=== PATIENT | female | born 1955 | race Caucasian/White ===

== ENCOUNTER 2016-08-18 12:42 | Emergency (ER) | payer BC ==
[~2016-08-18 12:42] MED LIST: ALLERGY INJECTIONS SC; ALTA5 PO; ALTACE PO; ALTACE10 MG PO; ASA5GR PO; ASAB PO; B12250T PO; BRILINTA90 MG PO; CIP5 PO; CRESTOR20 MG PO; DURA12 TOP; EFFIENT10 PO; EYE DROP OP; HUMAPUMP SC; IMDUR30 PO; JANTOVEN1 MG PO; JANTOVEN10 MG PO; JANTOVEN4 MG PO; JANTOVEN5 MG PO; JANTOVEN6 MG PO; JANTOVEN7.5 MG PO; K-TABS10 MEQ PO; KAPIDEX60 MG PO; KDUR10 PO; KLOR-CON 1010 MEQ PO; KLOR-CON M1010 MEQ PO; L40 PO; LEVEMFLXPN SC; LEVEMIR INSULIN; LEVEMIR SC; LIPITOR80 MG PO; LIQUITEARS OPH; LOP25 PO; LORCET PO; LORTAB 5 PO; LORTAB10 PO; NEUR100 PO; NITROQUICK0.4 MG SL; NITROSTAT0.4 MG; NITROSTAT0.4 MG SL; NORCO1 TAB PO; NOVLOGPUMP; NOVLOGPUMP SC; NOVOLOG PUMP; NOVOPEN SC; P20 PO; PEP20 PO; PERCOCET1 TA4 PO; PERCOCET1 TA5 PO; POTASSIUM RX PO; PRILOSEC40 MG PO; RANITIDINE300 MG PO; RECLAST IV; REFRESH OPH SO0.3 ML OPH; RESTASIS OPH; ROXICODONE15 MG PO; SUCR PO; ULTRAM50 PO; VALIUM10 MG PO; VITAMIN D1000 UNI1 PO; X5 PO; XANAX PO; ZANTAC300 MG PO; ZOLOFT25 MG PO
[2016-08-18 13:22] LABS: BASOPHILS 0.5 %; BASOPHILS ABSOLUTE 0.03 10/3/uL (0.0-0.16); EOSINOPHILS 2.4 %; EOSINOPHILS ABSOLUTE 0.14 10/3/uL (0.0-0.53); HEMATOCRIT 31.8 % (36.0-48.0); IMMATURE GRANULOCYTES 0.2 %; IMMATURE GRANULOCYTES ABSOLUTE 0.01 10/3/uL (0.0-0.11); LYMPHOCYTES 33.3 %; LYMPHOCYTES ABSOLUTE 1.94 10/3/uL (0.67-4.30); MEAN CORPUSCULAR HEMOGLOB 28.1 pg (26.0-34.0); MEAN CORPUSCULAR VOLUME 89.3 fL (80-100); MEAN PLATELET VOLUME 10.2 fL (9.2-13.0); MONOCYTES 6.7 %; MONOCYTES ABSOLUTE 0.39 10/3/uL (0.21-1.20); NEUTROPHILS 56.9 %; NEUTROPHILS ABSOLUTE 3.32 10/3/uL (2.02-8.40); PLATELET COUNT 242 10/3/uL (150-400); RBC DISTRIBUTION WIDTH 15.4 % (12.0-16.0); RED CELL COUNT 3.56 10/6/uL (4.0-5.6); WHITE BLOOD CELLS 5.8 10/3/uL (4.5-10.5)
[2016-08-18 13:23] LABS: MANUAL DIFF NO %; MEAN CORPUS HGB CONC 31.4 g/dL (32.0-36.0)
[2016-08-18 13:28] LABS: INTERNATIONAL NORMAL RATI 1.4 UNITS (-); PARTIAL THROMBO TIME 28.1 SEC (22.5-37.2)
[2016-08-18 13:29] LABS: PROTIME (NOT ORD) 16.8 SEC (12.0-14.5)
[2016-08-18 13:41] LABS: BUN (BLOOD UREA NITROGEN) 21 MG/DL (6-23); CALCIUM, SERUM 8.7 MG/DL (8.5-10.4); CHLORIDE, SERUM 106 MMOL/L (96-112); CO2 (CARBON DIOXIDE) 30 MMOL/L (24-34); GFR AFRICAN AMERICAN 62 ML/MIN (>=60); GFR NON AFRICAN AMERICAN 54 ML/MIN (>=60); POTASSIUM, SERUM 3.7 MMOL/L (3.5-5.3); SODIUM, SERUM 142 MMOL/L (135-148)
[2016-08-18 13:45] LABS: CHEST PAIN PROFILE TAT 0 Hrs 29 Mins; GLUCOSE, SERUM 169 MG/DL (60-99); TROPONIN I 0.33 NG/ML (<0.05)
== END 2016-08-18 17:30 | disposition home or self-care (01) ==
LOC: ER 12:42
PROVIDERS: Emergency Medicine
DX: I50.9 Heart failure, unspecified (principal); R79.89 Other specified abnormal findings of blood chemistry; I73.9 Peripheral vascular disease, unspecified; I25.2 Old myocardial infarction; E10.9 Type 1 diabetes mellitus without complications; Z95.1 Presence of aortocoronary bypass graft; F17.200 Nicotine dependence, unspecified, uncomplicated; Z88.2 Allergy status to sulfonamides; Z88.8 Allergy status to other drugs, medicaments and biological substances; Z79.4 Long term (current) use of insulin; Z79.01 Long term (current) use of anticoagulants; Z79.82 Long term (current) use of aspirin; Z79.899 Other long term (current) drug therapy
CPT/HCPCS: 71020; 80048; 83735; 83880; 84484; 85025; 85610; 85730; 93005; 96374; 99285

== ENCOUNTER 2016-09-22 19:17 | Inpatient (IN) | payer BC ==
--- NOTE | ~2016-09-22 | CN ---
Consultation Report [facility] [address] [place]. [address] NAME: GEORGE DU : 53 STATUS : ADM IN PAT#: [id number] AGE: 61 ADM/REG DATE : 09/22/16 MR#: [id number] REPORT SERV DATE: 09/26/16 DICTATED BY: MESFIN FERNANDES DATE: 09/26/16 REPORT STATUS : Draft TRANSCRIBED BY: MODL DATE: 09/26/16 ELECTROPHYSIOLOGY CONSULTATION DATE OF CONSULTATION: 09/26/2016 REASON FOR CONSULTATION: Sinus bradycardia and ischemic cardiomyopathy. HISTORY OF PRESENT ILLNESS: Ms. Du is a pleasant 61-year-old woman with longstanding history of coronary disease, status post a CAB in 1995, PCI procedures since that time. She presented with complaints of some congestion and atypical chest discomfort. In this setting, she had an echocardiogram that revealed LV systolic dysfunction with ejection fraction of 30%. She also has underlying sinus bradycardia and has a tachy-nickolas syndrome with atrial fibrillation and a recent cardioversion. She is not taking any rate-slowing agents. HOME MEDICATIONS: Include Lasix, hydrocodone, midodrine for orthostatic hypotension, potassium, Crestor, Brilinta, and Jantoven. PAST MEDICAL HISTORY: Notable for: 1. CAB in 1995 with recurrent cardiac catheterizations and PCI procedures and stents, this patient on Brilinta and Coumadin. 2. Atrial fibrillation. 3. Sinus bradycardia. 4. Orthostatic hypotension. 5. Stage II renal insufficiency. FAMILY HISTORY: Noncontributory. Negative for premature coronary artery disease or sudden cardiac . SOCIAL HISTORY: Negative tobacco or alcohol. REVIEW OF SYSTEMS: As noted above. All other systems reviewed and negative. PHYSICAL EXAMINATION: VITAL SIGNS: Blood pressure of 130/60, pulse of 42, respirations 16. GENERAL: Well developed, well nourished. HEENT: No icterus. Good dentition. NECK: Supple. No masses or thyromegaly. LUNGS: Breathing comfortably. No rales or wheezes. COR: Normal S1 and S2. No S3 or S4. No murmurs, clicks, rubs. No JVD. ABD: Soft, nondistended, nontender. No hepatosplenomegaly. EXT: No clubbing, cyanosis, or edema. Peripheral pulses 2+/= bilaterally. SKIN: Warm and dry. No visible lesions. Consultation Report [facility] [address] [place]. [address] NAME: GEORGE DU : 53 STATUS : ADM IN PAT#: [id number] AGE: 61 ADM/REG DATE : 09/22/16 MR#: [id number] REPORT SERV DATE: 09/26/16 DICTATED BY: MESFIN FERNANDES DATE: 09/26/16 REPORT STATUS : Draft TRANSCRIBED BY: MODL DATE: 09/26/16 MS: Chest wall without deformity. No obvious clavicular fractures. NEURO/PSYCH: Oriented x3. No anxiety or depression. DATA: EKG on admission showed sinus bradycardia, heart rate of 55 beats per minute, normal FL interval, normal QRS and QT intervals. No evidence for infarction or T-wave inversions. Cannot exclude lateral ischemia. LABORATORY VALUES: Unremarkable. Troponin negative. Electrolytes within normal limits. White count within normal limits. INR of 1.6. IMPRESSION: The patient with sinus bradycardia as well as a cardiomyopathy, presumably ischemic. The patient has a longstanding history of coronary artery disease. Her ejection fraction is now 30%. She is unable to take beta-blockers due to her underlying sinus bradycardia. She has otherwise been started on Aldactone due to renal insufficiency, has trouble taking DEMOND inhibitors as well. Because of all these issues including the cardiomyopathy and the sinus bradycardia, I have recommended a dual-chamber permanent pacemaker. At this point in time, I do not see indications for a SHEEP HERDER device as the patient does not appear to require ventricular pacing nor does she have an underlying prolonged QRS duration. I have described the procedure of dual-chamber pacemaker implantation. I noted the inherent risks which include, but are not exclusive to bleeding, infection, pneumothorax, cardiac perforation, and risk of . She claims to understand these issues, and she is willing to proceed. DADA/SYLVIA Mefsin Fernandes M.D. / [id number] CC: Genesis Scott Frances
--- NOTE | ~2016-09-22 | CN ---
Consultation Report [facility] [address] [place]. [address] NAME: GEORGE DU : 53 STATUS : ADM IN PAT#: [id number] AGE: 61 ADM/REG DATE : 09/22/16 MR#: [id number] REPORT SERV DATE: 09/22/16 DICTATED BY: SERGE LOMELI DATE: 09/22/16 REPORT STATUS : Draft TRANSCRIBED BY: MODKey DATE: 09/22/16 CARDIOLOGY CONSULTATION DATE OF CONSULTATION: 09/22/2016 REFERRING PHYSICIAN: [facility]. CHIEF COMPLAINT: Shortness of breath, chest pain. REASON FOR CONSULTATION: Shortness of breath, chest pain. SOURCE: Patient chart. HISTORY OF PRESENT ILLNESS: Ms. Du is a very pleasant 61-year-old, white woman with multiple medical problems including coronary artery disease and atrial flutter as well as orthostatic hypotension. She was in her usual state of health until four days ago when she began to have a cold and sinus congestion. She had a cough, sneezing, and coryza. She then started feeling shortness of breath. This continued to get worse. Her chest hurt today and radiate into the left arm. It lasted about 20 minute. She became hot and sweaty at that time. She took nitroglycerin and got better. Her left leg has been swelling. She has been feeling bloated. Her weight has increased. She feels full all the time. She did have diarrhea about five days ago, but that has gotten better. She has had some dizziness. Her blood pressure has remained low. She has not had any bleeding. REVIEW OF SYSTEMS: All other systems are negative. ALLERGIES: INCLUDED PLAVIX, SULFA, METHADONE, ROSIGLITAZONE, PREGABALIN. MEDICATIONS: At home included alprazolam, artificial tears, furosemide, gabapentin, hydrocodone, insulin, midodrine, nitroglycerin, omeprazole, potassium, ranitidine, rosuvastatin, ticagrelor, and warfarin. CARDIAC RISK FACTORS: 10/20. PAST MEDICAL HISTORY: Remarkable for coronary artery disease, status post coronary bypass grafting and multiple percutaneous interventions, most recently, the in June. She also has peripheral artery disease, which is extensive, status post surgery and percutaneous interventions. She has atrial fibrillation, status post recent ALONSO cardioversion. She has had renal artery disease, carotid artery disease, chronic kidney disease. Recently she has been having problems with orthostatic hypotension, has been placed on ProAmatine. SOCIAL HISTORY: Continues to smoke. Does not consume alcohol or illegal drugs. Consultation Report [place] [id number] [facility] [place]. [address] NAME: GEORGE DU : 53 STATUS : ADM IN PAT#: [id number] AGE: 61 ADM/REG DATE : 09/22/16 MR#: [id number] REPORT SERV DATE: 09/22/16 DICTATED BY: SERGE LOMELI DATE: 09/22/16 REPORT STATUS : Draft TRANSCRIBED BY: SYLVIA DATE: 09/22/16 FAMILY HISTORY: Significant for coronary artery disease. PHYSICAL EXAMINATION: GENERAL: She is an acutely and chronically ill-appearing elderly white woman, in no acute distress. VITAL SIGNS: Blood pressure is 114/53, pulse 71, temperature 98.2, her weight in June, which was 88.2 kilos, height is 5 feet 5 inches. The weight is not been done this admission. HEENT: Sclerae anicteric. Lips without cyanosis. Carotids 2+ and symmetrical. Bilateral bruits. No JVD. No thyromegaly. LUNGS: Diminished breath sounds and rales at both bases. No use of accessory muscles. HEART: Regular rate and rhythm. 2/6 systolic murmur. No heaves or thrills. ABDOMEN: Obese. Positive bowel sounds. Soft, nontender. EXTREMITIES: Pulses 1+ and symmetrical. No cyanosis or clubbing. 1+ edema. BACK: No CVA tenderness. MUSCULOSKELETAL: Good tone. NEURO: Alert and oriented x3. DATA: The EKG AF from [facility], normal sinus rhythm, anterior myocardial infarction of undetermined age. Inferolateral ST-T wave changes, actually less prominent than August. LABORATORY EXAMINATION: Includes white count 7.5, hemoglobin 10.0, hematocrit 32.6, platelets 281,000. MCV is 81. INR 1.3. PTT of 22.6. Sodium 138, potassium 3.8, chloride 100, CO2 of 29, glucose 297, BUN 16, creatinine 1.3. BNP level is 9312. Troponin of 0.11. AST 19, ALT 17, alkaline phosphatase 91, total bilirubin 0.6. IMPRESSION: 1. Congestive heart failure, acute on chronic, combined systolic and diastolic dysfunction. 2. Last left ventricular ejection fraction of 55% by echocardiogram earlier this year. 3. Coronary artery disease, status post coronary bypass grafting and multiple percutaneous interventions. 4. Brief chest pain today of unclear significance. 5. Severe peripheral artery disease, status post surgery and percutaneous intervention. 6. Anticoagulated with subtherapeutic INR. 7. Paroxysmal atrial fibrillation, status post ALONSO cardioversion. 8. 5/5 cardiac risk factors. 9. Chronic kidney disease, stage III. 10.Orthostatic hypotension, on ProAmatine. 11.Sleep apnea, on CPAP. 12.Anemia with borderline microcytosis. RECOMMENDATIONS: 1. Complete database. See orders. 2. Diuresis with IV Lasix. Consultation Report [address] [address] NAME: GEORGE DU : 53 STATUS : ADM IN [facility]#: [id number] AGE: 61 ADM/REG DATE : 09/22/16 MR#: [id number] REPORT SERV DATE: 09/22/16 DICTATED BY: SERGE LOMELI. DATE: 09/22/16 REPORT STATUS : Draft TRANSCRIBED BY: MODL DATE: 09/22/16 3. Continue ProAmatine. 4. Not on DEMOND inhibitors due to chronic kidney disease and low blood pressure. 5. Not on beta-blockers due to low blood pressure. 6. Continue Jantoven and Brilinta. 7. Consult Hospital Service. LUIS MANUEL/TOBYL Serge Lomeli M.D. / [id number] CC: Genesis Rodríguez
--- NOTE | ~2016-09-22 | HP ---
History And Physical [place] [id number] [place]. [address] NAME: GEORGE RAMOS : 53 STATUS : ADM IN PAT#: [id number] AGE: 61 ADM/REG DATE : 09/22/16 MR#: [id number] REPORT SERV DATE: 09/23/16 DICTATED BY: FELIPE BAIRD DATE: 09/22/16 REPORT STATUS : Draft TRANSCRIBED BY: MODKey DATE: 09/22/16 DATE OF ADMISSION: 09/22/2016 CONSULTATION/HISTORY AND PHYSICAL. CHIEF COMPLAINT: Episode of chest pain today. HISTORY OF PRESENT ILLNESS: This is a pleasant 61-year-old white female, with a multiple medical problems, who was admitted by Cardiology Dr. Eugenio Lopez today as a transfer from [facility]. Hospitalist Service has been asked to consult for medical management of her diabetes, and the patient reports that this past week Sunday through Sunday she had episodes of diarrhea and decreased p.o. intake. This seemed to resolve on Sunday but then she began to have cold symptoms, sinus congestion, and then she reports episodes of chest pain that radiated down her left arm today. She also states that for the past two to three months she has had worsening fatigue, worsening dyspnea with exertion to the point where she feels like ambulating in her home from chair and to the hallway and so forth she feels like she will pass out. The patient is an insulin-dependent diabetic and has been on an insulin pump of Humalog for sometime although she has some difficulty in explaining her usage when asked. She did have a hemoglobin A1c checked here during hospitalization in June of 2016, and that was 8.0, however. PAST MEDICAL HISTORY: Includes diabetes type 2 as stated, gastroparesis with coronary artery disease, hypertension, hyperlipidemia, paroxysmal atrial fib. She has neuropathy as well. ALLERGIES: TO BRILINTA, SULFA, PLAVIX, LYRICA. SOCIAL HISTORY: Tobacco one and half packs per day but she says she has not smoked in the past month. Alcohol, she denies. SURGICAL HISTORY: Coronary artery bypass grafting, cardiac cath with stents drug eluting, cholecystectomy, tonsillectomy, cataract surgery, and sinus surgery. FAMILY HISTORY: Significant for coronary artery disease in multiple family members including mother and brothers and sisters. She also states that two brothers have lung cancer and one brother with type 2 diabetes. REVIEW OF SYSTEMS: A 10-point review of systems is negative, except for pertinents mentioned in the above HPI. PHYSICAL EXAMINATION: VITAL SIGNS: Temperature is 97.8, pulse rate of 65. She is 95% on 1-2 L nasal cannula. Blood pressure 146/74, respiratory rate 16. GENERAL: She is alert oriented x3. Moves all extremities x4. No focal deficits. She is generally cooperative and awake for this exam. NECK: No appreciable lymphadenopathy is noted. Mild JVD. LUNGS: Clear to auscultation bilaterally. Normal respiratory effort. History And Physical [address] [place]. [address] NAME: GEORGE RAMOS : 53 STATUS : ADM IN [facility]#: [id number] AGE: 61 ADM/REG DATE : 09/22/16 MR#: [id number] REPORT SERV DATE: 09/23/16 DICTATED BY: FELIPE BAIRD DATE: 09/22/16 REPORT STATUS : Draft TRANSCRIBED BY: SYLVIA DATE: 09/22/16 CARDIOVASCULAR: She is currently sinus rhythm at 66 heart rate. No murmurs, rubs, gallops heard. ABDOMEN: Soft, nontender, somewhat hyperactive bowel sounds. Lower extremity edema +1 bilaterally. HEENT: PERRLA is noted. Sclerae are clear. SKIN: Otherwise, skin is warm and dry. LAB WORK: Lab work has a white blood cell 7.5, hemoglobin 10.0, hematocrit 32.6, platelet count 281. Sodium 138, potassium 3.8, BUN of 16, creatinine 1.38, glucose 297, INR 1.4, and a BNP of 9312. ASSESSMENT: 1. Insulin-dependent diabetes type 2 with hemoglobin A1c in June of 2016 of 8.0 with neuropathy. 2. Chronic kidney disease, stage III. 3. Chest pain. 4. Acute on chronic congestive heart failure, systolic and diastolic. 5. Paroxysmal atrial fibrillation, but now in sinus rhythm, on chronic Coumadin therapy. Most recent INR is 1.4. 6. Obstructive sleep apnea. CPAP use nightly, tobacco use. 7. History of peripheral arterial disease. 8. Dyspnea with exertion. 9. Anxiety. PLAN: We will utilize Levemir and a sliding scale at this time and stop her Humalog pump as she is unable to properly explain her usage, and she does not have extra insulin at this time. We will have the community health educator see the patient while she is here, and we will obtain a hemoglobin A1c as the last one was done in June. Her troponins will be trended per Cardiology. She will be diuresed with IV Lasix. Her lab work will be followed closely. Orthostatics will be checked, and I will add a TSH to her regimen for completeness sake. I appreciate the opportunity to consult on this patient. We will follow along with you. CSC/MODL Felipe Baird NP / [id number] CC: Genesis Rodríguez
--- NOTE | ~2016-09-22 | DS ---
Discharge Summary [facility] [address] [place]. [address] NAME: GEORGE RAMOS : 53 STATUS : DIS IN PAT#: [id number] AGE: 61 ADM/REG DATE : 09/22/16 MR#: [id number] REPORT SERV DATE: 10/17/16 DICTATED BY: DANTE RANDALL DATE: 10/16/16 REPORT STATUS : Draft TRANSCRIBED BY: MODL DATE: 10/16/16 ADMISSION DATE: 09/22/2016 DISCHARGE DATE: 09/29/2016 DISCHARGE DIAGNOSES: 1. Acute on chronic ischemic cardiomyopathy, both systolic and diastolic, status post dual- chamber ICD implantation. 2. Paroxysmal atrial fibrillation, on Coumadin. 3. Chronic kidney disease, stage III. 4. Uncontrolled diabetes, type 2. 5. Peripheral artery disease. 6. Obstructive sleep apnea. CONSULTANTS: Cardiology. PROCEDURES: Dual-chamber ICD implantation on 09/26/[address] Hampton. HOSPITAL COURSE: This is a 61-year-old lady who was admitted to the hospital with recurrent chest pains. For details, please refer to H and P by Felipe Sweeney dictated on 09/23/2016. In summary, the patient was admitted and was diagnosed with acute on chronic combined systolic and diastolic dysfunction. The patient was treated appropriately with IV diuretics. The patient was then evaluated for biventricular ICD implantation which was put in 09/26/2016. By the time I assumed care of this patient. The patient was status post ICD implantation and was recovering. After a few days of close monitoring, the patient was discharged home in stable condition to be followed closely as an outpatient. Her presenting symptom of acute on chronic systolic and diastolic congestive heart failure was better controlled by the time of discharge. DISPOSITION: Home. DISCHARGE MEDICATIONS: Discharge medication reconciliation was done by Cardiology, please review the discharge MAR. FOLLOWUP: 1. Please follow up with Cardiology in the next one to two weeks. 2. Please follow up with PCP in the next one to two weeks. A total of 35 minutes spent in coordinating this patient's discharge. Please note that the Hospitalist Service actually saw the patient as a oracle hyperion consultant and Cardiology has actually been the primary team for this patient. DEYSI/SYLVIA Dante Randall MD Discharge Summary [address] [place] [address] NAME: GEORGE RAMOS : 53 STATUS : DIS IN PAT#: [id number] AGE: 61 ADM/REG DATE : 09/22/16 MR#: [id number] REPORT SERV DATE: 10/17/16 DICTATED BY: DANTE RANDALL DATE: 10/16/16 REPORT STATUS : Draft TRANSCRIBED BY: SYLVIA DATE: 10/16/16 / [id number] CC: Genesis Scott
[2016-09-22] MEDS ORDERED: PROAM25 PO (19:54)
[2016-09-22 22:55] LABS: INTERNATIONAL NORMAL RATI 1.4 UNITS (-); PROTIME (NOT ORD) 16.9 SEC (12.0-14.5)
[2016-09-23 00:22] LABS: BASOPHILS 0.3 %; BASOPHILS ABSOLUTE 0.02 10/3/uL (0.0-0.16); EOSINOPHILS 0.1 %; EOSINOPHILS ABSOLUTE 0.01 10/3/uL (0.0-0.53); HEMATOCRIT 31.3 % (36.0-48.0); HEMOGLOBIN 9.7 g/dL (12.0-16.0); IMMATURE GRANULOCYTES 0.1 %; IMMATURE GRANULOCYTES ABSOLUTE 0.01 10/3/uL (0.0-0.11); LYMPHOCYTES 23.3 %; LYMPHOCYTES ABSOLUTE 1.59 10/3/uL (0.67-4.30); MEAN PLATELET VOLUME 10.3 fL (9.2-13.0); MONOCYTES 6.8 %; MONOCYTES ABSOLUTE 0.46 10/3/uL (0.21-1.20); NEUTROPHILS 69.4 %; NEUTROPHILS ABSOLUTE 4.72 10/3/uL (2.02-8.40); PLATELET COUNT 242 10/3/uL (150-400); WHITE BLOOD CELLS 6.8 10/3/uL (4.5-10.5)
[2016-09-23 00:24] LABS: MANUAL DIFF NO %; MEAN CORPUSCULAR HEMOGLOB 24.9 pg (26.0-34.0); MEAN CORPUSCULAR VOLUME 80.3 fL (80-100)
[2016-09-23 00:31] LABS: PARTIAL THROMBO TIME 28.8 SEC (22.5-37.2)
[2016-09-23 00:33] LABS: D-DIMER QUANTITATIVE 1.33 ug/mLFEU (< 0.50)
[2016-09-23 01:07] LABS: A/G RATIO 0.9 (0.7-1.9); ALBUMIN 3.4 G/DL (3.5-5.0); ALKALINE PHOSPHATASE 87 U/L (45-117); BUN (BLOOD UREA NITROGEN) 18 MG/DL (6-23); CALCIUM, SERUM 8.8 MG/DL (8.5-10.4); CHLORIDE, SERUM 100 MMOL/L (96-112); CO2 (CARBON DIOXIDE) 30 MMOL/L (24-34); CREATININE 1.01 MG/DL (0.55-1.02); GFR AFRICAN AMERICAN 69 ML/MIN (>=60); GFR NON AFRICAN AMERICAN 60 ML/MIN (>=60); GLOBULIN 3.7 G/DL (2.5-4.1); POTASSIUM, SERUM 3.5 MMOL/L (3.5-5.3); SGOT(AST) 14 U/L (5-40); SGPT(ALT) 14 U/L (5-65); SODIUM, SERUM 140 MMOL/L (135-148); TOTAL BILIRUBIN 0.8 MG/DL (0-1.2); TOTAL PROTEIN 7.1 G/DL (6.0-8.5); ULTRASENSITIVE TSH 0.668 MCIU/ML (0.358-3.740)
[2016-09-23 01:08] LABS: CK-MB 2.2 NG/ML; CPK 83 U/L (0-200); GLUCOSE, SERUM 225 MG/DL (60-99)
[2016-09-23 02:15] LABS: BASOPHILS 0.3 %; BASOPHILS ABSOLUTE 0.02 10/3/uL (0.0-0.16); EOSINOPHILS 0.2 %; EOSINOPHILS ABSOLUTE 0.01 10/3/uL (0.0-0.53); HEMATOCRIT 29.4 % (36.0-48.0); HEMOGLOBIN 9.3 g/dL (12.0-16.0); IMMATURE GRANULOCYTES 0.2 %; IMMATURE GRANULOCYTES ABSOLUTE 0.01 10/3/uL (0.0-0.11); LYMPHOCYTES 23.6 %; MEAN CORPUS HGB CONC 31.6 g/dL (32.0-36.0); MEAN CORPUSCULAR HEMOGLOB 25.4 pg (26.0-34.0); MEAN CORPUSCULAR VOLUME 80.3 fL (80-100); MEAN PLATELET VOLUME 9.9 fL (9.2-13.0); MONOCYTES 6.7 %; NEUTROPHILS ABSOLUTE 4.09 10/3/uL (2.02-8.40); PLATELET COUNT 226 10/3/uL (150-400); RED CELL COUNT 3.66 10/6/uL (4.0-5.6); WHITE BLOOD CELLS 5.9 10/3/uL (4.5-10.5)
[2016-09-23 02:16] LABS: MANUAL DIFF NO %
[2016-09-23 02:22] LABS: INTERNATIONAL NORMAL RATI 1.5 UNITS (-); PROTIME (NOT ORD) 17.6 SEC (12.0-14.5)
[2016-09-23 02:40] LABS: BUN (BLOOD UREA NITROGEN) 17 MG/DL (6-23); CALCIUM, SERUM 8.6 MG/DL (8.5-10.4); CHLORIDE, SERUM 102 MMOL/L (96-112); CO2 (CARBON DIOXIDE) 31 MMOL/L (24-34); CPK 71 U/L (0-200); GFR AFRICAN AMERICAN 79 ML/MIN (>=60); GFR NON AFRICAN AMERICAN 69 ML/MIN (>=60); GLUCOSE, SERUM 266 MG/DL (60-99); POTASSIUM, SERUM 3.6 MMOL/L (3.5-5.3); SODIUM, SERUM 142 MMOL/L (135-148)
[2016-09-23 02:42] LABS: CK-MB 2.6 NG/ML
[2016-09-23 12:13] LABS: CK-MB 2.4 NG/ML; CPK 93 U/L (0-200)
[2016-09-23 13:09] LABS: RETICULOCYTE COUNT 2.2 % (0.5-2.9); RETICULOCYTE COUNT ABSOLUTE 84.1 10/3/uL (20.2-119.8)
[2016-09-23 13:17] LABS: % IRON SAT 5 % (20-50); FERRITIN 12 NG/ML (8-252); IRON BINDING CAPACITY 355 MCG/DL (225-410); IRON, SERUM 17 MCG/DL (35-150)
[2016-09-23 13:22] LABS: T PROTEIN (ELECT)(NOT OR 6.4 G/DL (6.0-8.5)
[2016-09-23 21:10] LABS: CPK 99 U/L (0-200)
[2016-09-23 21:14] LABS: CK-MB 1.9 NG/ML
[2016-09-24 06:24] LABS: INTERNATIONAL NORMAL RATI 1.4 UNITS (-); PROTIME (NOT ORD) 17.3 SEC (12.0-14.5)
[2016-09-24 06:28] LABS: BASOPHILS 0.7 %; BASOPHILS ABSOLUTE 0.04 10/3/uL (0.0-0.16); EOSINOPHILS ABSOLUTE 0.12 10/3/uL (0.0-0.53); HEMATOCRIT 30.7 % (36.0-48.0); HEMOGLOBIN 9.5 g/dL (12.0-16.0); IMMATURE GRANULOCYTES 0.2 %; IMMATURE GRANULOCYTES ABSOLUTE 0.01 10/3/uL (0.0-0.11); LYMPHOCYTES 49.5 %; LYMPHOCYTES ABSOLUTE 3.02 10/3/uL (0.67-4.30); MEAN CORPUS HGB CONC 30.9 g/dL (32.0-36.0); MEAN CORPUSCULAR HEMOGLOB 24.9 pg (26.0-34.0); MEAN CORPUSCULAR VOLUME 80.6 fL (80-100); MEAN PLATELET VOLUME 10.6 fL (9.2-13.0); MONOCYTES 7.2 %; MONOCYTES ABSOLUTE 0.44 10/3/uL (0.21-1.20); NEUTROPHILS 40.4 %; NEUTROPHILS ABSOLUTE 2.47 10/3/uL (2.02-8.40); PLATELET COUNT 244 10/3/uL (150-400); RBC DISTRIBUTION WIDTH 17.3 % (12.0-16.0); RED CELL COUNT 3.81 10/6/uL (4.0-5.6); WHITE BLOOD CELLS 6.1 10/3/uL (4.5-10.5)
[2016-09-24 06:29] LABS: MANUAL DIFF NO %
[2016-09-24 06:31] LABS: CALCIUM, SERUM 8.8 MG/DL (8.5-10.4); CHLORIDE, SERUM 102 MMOL/L (96-112); CO2 (CARBON DIOXIDE) 30 MMOL/L (24-34); CREATININE 1.12 MG/DL (0.55-1.02); GFR AFRICAN AMERICAN 61 ML/MIN (>=60); GFR NON AFRICAN AMERICAN 53 ML/MIN (>=60); SODIUM, SERUM 143 MMOL/L (135-148)
[2016-09-24 06:32] LABS: BUN (BLOOD UREA NITROGEN) 23 MG/DL (6-23); GLUCOSE, SERUM 81 MG/DL (60-99); POTASSIUM, SERUM 4.6 MMOL/L (3.5-5.3)
[2016-09-24 07:13] LABS: PROCALCITONIN 0.06 ng/mL (<0.5)
[2016-09-25 05:33] LABS: BUN (BLOOD UREA NITROGEN) 25 MG/DL (6-23); CALCIUM, SERUM 9.2 MG/DL (8.5-10.4); CHLORIDE, SERUM 101 MMOL/L (96-112); CO2 (CARBON DIOXIDE) 30 MMOL/L (24-34); CREATININE 1.32 MG/DL (0.55-1.02); GFR AFRICAN AMERICAN 50 ML/MIN (>=60); GFR NON AFRICAN AMERICAN 43 ML/MIN (>=60); POTASSIUM, SERUM 4.5 MMOL/L (3.5-5.3); SODIUM, SERUM 140 MMOL/L (135-148)
[2016-09-25 05:34] LABS: BASOPHILS 0.6 %; BASOPHILS ABSOLUTE 0.03 10/3/uL (0.0-0.16); EOSINOPHILS 2.8 %; EOSINOPHILS ABSOLUTE 0.15 10/3/uL (0.0-0.53); HEMATOCRIT 30.7 % (36.0-48.0); HEMOGLOBIN 9.5 g/dL (12.0-16.0); IMMATURE GRANULOCYTES 0.2 %; IMMATURE GRANULOCYTES ABSOLUTE 0.01 10/3/uL (0.0-0.11); LYMPHOCYTES 39.1 %; LYMPHOCYTES ABSOLUTE 2.11 10/3/uL (0.67-4.30); MEAN CORPUS HGB CONC 30.9 g/dL (32.0-36.0); MEAN CORPUSCULAR HEMOGLOB 24.7 pg (26.0-34.0); MEAN CORPUSCULAR VOLUME 79.9 fL (80-100); MEAN PLATELET VOLUME 10.3 fL (9.2-13.0); MONOCYTES 5.9 %; MONOCYTES ABSOLUTE 0.32 10/3/uL (0.21-1.20); NEUTROPHILS 51.4 %; NEUTROPHILS ABSOLUTE 2.77 10/3/uL (2.02-8.40); PLATELET COUNT 248 10/3/uL (150-400); RBC DISTRIBUTION WIDTH 17.5 % (12.0-16.0); RED CELL COUNT 3.84 10/6/uL (4.0-5.6); WHITE BLOOD CELLS 5.4 10/3/uL (4.5-10.5)
[2016-09-25 05:35] LABS: GLUCOSE, SERUM 363 MG/DL (60-99)
[2016-09-25 05:42] LABS: MANUAL DIFF NO %
[2016-09-25 06:42] LABS: INTERNATIONAL NORMAL RATI 1.5 UNITS (-); PROTIME (NOT ORD) 17.7 SEC (12.0-14.5)
[2016-09-25 07:26] LABS: PROCALCITONIN 0.05 ng/mL (<0.5)
[2016-09-25 10:05] LABS: A/G 1.41 RATIO (0.9-2.10); ALB RELATIVE % 58.5 % (60.0-89.0); ALBUMIN (ELECTRO) 3.74 GM/DL (3.2-5.5); ALPHA 1 (ELECTRO) 0.29 GM/DL (0.1-0.4); ALPHA 1 RELAT % (NOT ORD) 4.5 % (1.0-4.0); ALPHA 2 (ELECTRO) 0.74 GM/DL (0.5-1.10); ALPHA 2 RELAT % 11.5 % (4.5-26.0); BETA GLOBULIN (SPE) 0.64 GM/DL (0.60-1.30); GAMMA GLOBULIN (SPE) 0.99 G/DL (0.70-1.60); GAMMA RELAT % 15.5 % (6.0-22.0)
[2016-09-26 06:49] LABS: BASOPHILS 0.4 %; BASOPHILS ABSOLUTE 0.03 10/3/uL (0.0-0.16); EOSINOPHILS 4.6 %; EOSINOPHILS ABSOLUTE 0.34 10/3/uL (0.0-0.53); HEMOGLOBIN 10.1 g/dL (12.0-16.0); IMMATURE GRANULOCYTES 0.3 %; IMMATURE GRANULOCYTES ABSOLUTE 0.02 10/3/uL (0.0-0.11); LYMPHOCYTES 34.7 %; LYMPHOCYTES ABSOLUTE 2.55 10/3/uL (0.67-4.30); MANUAL DIFF NO %; MEAN CORPUS HGB CONC 30.6 g/dL (32.0-36.0); MEAN CORPUSCULAR HEMOGLOB 24.5 pg (26.0-34.0); MEAN CORPUSCULAR VOLUME 79.9 fL (80-100); MEAN PLATELET VOLUME 10.7 fL (9.2-13.0); MONOCYTES 6.7 %; MONOCYTES ABSOLUTE 0.49 10/3/uL (0.21-1.20); NEUTROPHILS 53.3 %; NEUTROPHILS ABSOLUTE 3.92 10/3/uL (2.02-8.40); PLATELET COUNT 286 10/3/uL (150-400); RBC DISTRIBUTION WIDTH 17.4 % (12.0-16.0); RED CELL COUNT 4.13 10/6/uL (4.0-5.6); WHITE BLOOD CELLS 7.4 10/3/uL (4.5-10.5)
[2016-09-26 06:53] LABS: INTERNATIONAL NORMAL RATI 1.6 UNITS (-); PROTIME (NOT ORD) 18.5 SEC (12.0-14.5)
[2016-09-26 07:02] LABS: ALBUMIN 3.3 G/DL (3.5-5.0); BUN (BLOOD UREA NITROGEN) 22 MG/DL (6-23); CALCIUM, SERUM 9.1 MG/DL (8.5-10.4); CHLORIDE, SERUM 100 MMOL/L (96-112); CO2 (CARBON DIOXIDE) 30 MMOL/L (24-34); CREATININE 1.23 MG/DL (0.55-1.02); GFR AFRICAN AMERICAN 54 ML/MIN (>=60); GFR NON AFRICAN AMERICAN 47 ML/MIN (>=60); GLUCOSE, SERUM 202 MG/DL (60-99); POTASSIUM, SERUM 4.3 MMOL/L (3.5-5.3); SODIUM, SERUM 141 MMOL/L (135-148)
[2016-09-27 04:49] LABS: BASOPHILS 0.3 %; BASOPHILS ABSOLUTE 0.02 10/3/uL (0.0-0.16); EOSINOPHILS 3.9 %; EOSINOPHILS ABSOLUTE 0.27 10/3/uL (0.0-0.53); HEMATOCRIT 32.9 % (36.0-48.0); HEMOGLOBIN 10.4 g/dL (12.0-16.0); IMMATURE GRANULOCYTES 0.4 %; IMMATURE GRANULOCYTES ABSOLUTE 0.03 10/3/uL (0.0-0.11); LYMPHOCYTES 29.2 %; LYMPHOCYTES ABSOLUTE 2.04 10/3/uL (0.67-4.30); MEAN CORPUS HGB CONC 31.6 g/dL (32.0-36.0); MEAN CORPUSCULAR HEMOGLOB 24.8 pg (26.0-34.0); MEAN CORPUSCULAR VOLUME 78.5 fL (80-100); MEAN PLATELET VOLUME 10.2 fL (9.2-13.0); MONOCYTES ABSOLUTE 0.42 10/3/uL (0.21-1.20); NEUTROPHILS 60.2 %; PLATELET COUNT 275 10/3/uL (150-400); RBC DISTRIBUTION WIDTH 17.7 % (12.0-16.0); RED CELL COUNT 4.19 10/6/uL (4.0-5.6)
[2016-09-27 04:52] LABS: MANUAL DIFF NO %
[2016-09-27 04:56] LABS: INTERNATIONAL NORMAL RATI 1.7 UNITS (-); PROTIME (NOT ORD) 19.8 SEC (12.0-14.5)
[2016-09-27 05:01] LABS: ALBUMIN 3.4 G/DL (3.5-5.0); BUN (BLOOD UREA NITROGEN) 19 MG/DL (6-23); CALCIUM, SERUM 9.1 MG/DL (8.5-10.4); CHLORIDE, SERUM 100 MMOL/L (96-112); CO2 (CARBON DIOXIDE) 32 MMOL/L (24-34); CREATININE 1.32 MG/DL (0.55-1.02); GFR AFRICAN AMERICAN 50 ML/MIN (>=60); GFR NON AFRICAN AMERICAN 43 ML/MIN (>=60); GLUCOSE, SERUM 229 MG/DL (60-99); PHOSPHORUS, SERUM 4.6 MG/DL (2.5-4.5); POTASSIUM, SERUM 4.5 MMOL/L (3.5-5.3); SODIUM, SERUM 140 MMOL/L (135-148)
[2016-09-28 06:01] LABS: INTERNATIONAL NORMAL RATI 1.7 UNITS (-); PROTIME (NOT ORD) 19.9 SEC (12.0-14.5)
[2016-09-28 06:14] LABS: ALBUMIN 3.6 G/DL (3.5-5.0); BUN (BLOOD UREA NITROGEN) 21 MG/DL (6-23); CALCIUM, SERUM 9.7 MG/DL (8.5-10.4); CHLORIDE, SERUM 98 MMOL/L (96-112); CO2 (CARBON DIOXIDE) 30 MMOL/L (24-34); CREATININE 1.42 MG/DL (0.55-1.02); GFR AFRICAN AMERICAN 46 ML/MIN (>=60); GFR NON AFRICAN AMERICAN 39 ML/MIN (>=60); PHOSPHORUS, SERUM 4.3 MG/DL (2.5-4.5); POTASSIUM, SERUM 4.2 MMOL/L (3.5-5.3); SODIUM, SERUM 137 MMOL/L (135-148)
[2016-09-28 06:17] LABS: GLUCOSE, SERUM 277 MG/DL (60-99)
[2016-09-29 06:56] LABS: BASOPHILS 0.5 %; BASOPHILS ABSOLUTE 0.04 10/3/uL (0.0-0.16); EOSINOPHILS 6.7 %; EOSINOPHILS ABSOLUTE 0.56 10/3/uL (0.0-0.53); HEMOGLOBIN 11.7 g/dL (12.0-16.0); IMMATURE GRANULOCYTES 0.5 %; IMMATURE GRANULOCYTES ABSOLUTE 0.04 10/3/uL (0.0-0.11); LYMPHOCYTES 28.8 %; LYMPHOCYTES ABSOLUTE 2.41 10/3/uL (0.67-4.30); MEAN CORPUS HGB CONC 30.7 g/dL (32.0-36.0); MEAN CORPUSCULAR HEMOGLOB 24.5 pg (26.0-34.0); MEAN CORPUSCULAR VOLUME 79.9 fL (80-100); MEAN PLATELET VOLUME 10.1 fL (9.2-13.0); MONOCYTES 9.1 %; MONOCYTES ABSOLUTE 0.76 10/3/uL (0.21-1.20); NEUTROPHILS 54.4 %; NEUTROPHILS ABSOLUTE 4.56 10/3/uL (2.02-8.40); PLATELET COUNT 259 10/3/uL (150-400); RBC DISTRIBUTION WIDTH 18.9 % (12.0-16.0); RED CELL COUNT 4.77 10/6/uL (4.0-5.6); WHITE BLOOD CELLS 8.4 10/3/uL (4.5-10.5)
[2016-09-29 06:58] LABS: HEMATOCRIT 38.1 % (36.0-48.0); MANUAL DIFF NO %
[2016-09-29 07:01] LABS: PROTIME (NOT ORD) 22.2 SEC (12.0-14.5)
[2016-09-29 07:07] LABS: ALBUMIN 3.7 G/DL (3.5-5.0); BUN (BLOOD UREA NITROGEN) 24 MG/DL (6-23); CALCIUM, SERUM 9.6 MG/DL (8.5-10.4); CHLORIDE, SERUM 98 MMOL/L (96-112); CO2 (CARBON DIOXIDE) 31 MMOL/L (24-34); CREATININE 1.57 MG/DL (0.55-1.02); GFR AFRICAN AMERICAN 41 ML/MIN (>=60); GFR NON AFRICAN AMERICAN 35 ML/MIN (>=60); GLUCOSE, SERUM 230 MG/DL (60-99); PHOSPHORUS, SERUM 4.2 MG/DL (2.5-4.5); POTASSIUM, SERUM 4.4 MMOL/L (3.5-5.3); SODIUM, SERUM 139 MMOL/L (135-148)
[2016-09-29] MEDS ORDERED: COREG3 PO (11:28)
[2016-09-29] MEDS ORDERED: SPIRO25 PO (11:34)
== END 2016-09-29 14:02 | disposition home or self-care (01) | DRG 226 ==
LOC: 6NO 19:17
PROVIDERS: Internal Medicine; Internal Medicine Cardiovascular Disease; Nurse Practitioner Family
PROC: 0JH608Z Insertion of Defibrillator Generator into Chest Subcutaneous Tissue and Fascia, Open Approach (ICD-10-PCS; principal; 2016-09-26)
PROC: 02HK3KZ Insertion of Defibrillator Lead into Right Ventricle, Percutaneous Approach (ICD-10-PCS; 2016-09-26)
PROC: 02H63KZ Insertion of Defibrillator Lead into Right Atrium, Percutaneous Approach (ICD-10-PCS; 2016-09-26)
DX: I13.0 Hypertensive heart and chronic kidney disease with heart failure and stage 1 through stage 4 chronic kidney disease, or unspecified chronic kidney disease (principal); I50.43 Acute on chronic combined systolic (congestive) and diastolic (congestive) heart failure; E11.22 Type 2 diabetes mellitus with diabetic chronic kidney disease; N17.9 Acute kidney failure, unspecified; K31.84 Gastroparesis; E11.40 Type 2 diabetes mellitus with diabetic neuropathy, unspecified; E11.65 Type 2 diabetes mellitus with hyperglycemia; N18.3 Chronic kidney disease, stage 3 (moderate); D62 Acute posthemorrhagic anemia; I25.10 Atherosclerotic heart disease of native coronary artery without angina pectoris; I25.5 Ischemic cardiomyopathy; I48.0 Paroxysmal atrial fibrillation; I73.9 Peripheral vascular disease, unspecified; G47.33 Obstructive sleep apnea (adult) (pediatric); I95.1 Orthostatic hypotension; F41.9 Anxiety disorder, unspecified; K59.00 Constipation, unspecified; D64.9 Anemia, unspecified; I08.1 Rheumatic disorders of both mitral and tricuspid valves; R00.1 Bradycardia, unspecified; E11.43 Type 2 diabetes mellitus with diabetic autonomic (poly)neuropathy; F17.210 Nicotine dependence, cigarettes, uncomplicated; E78.5 Hyperlipidemia, unspecified; Z95.1 Presence of aortocoronary bypass graft; Z79.01 Long term (current) use of anticoagulants; Z90.49 Acquired absence of other specified parts of digestive tract; Z79.4 Long term (current) use of insulin; Z95.5 Presence of coronary angioplasty implant and graft; Z82.49 Family history of ischemic heart disease and other diseases of the circulatory system; Z96.41 Presence of insulin pump (external) (internal); Z83.3 Family history of diabetes mellitus
CPT/HCPCS: 33249; 71010; 71020; 71275; 80048; 80053; 80069; 82272; 82550; 82553; 82607; 82728; 82962; 83036; 83540; 83550; 83615; 83735; 83880; 84145; 84155; 84165; 84443; 85025; 85045; 85379; 85610; 85730; 93005; 93641; 93880; A9270-GY; C1721; C1892; C1895; C1898; C8929; J0690; J2916; J3010; Q9957; Q9967